=== PATIENT | female | born 1945 | race Native Hawaiian/Other Pacific Islander ===

== ENCOUNTER 2018-02-19 07:26 | Day surgery (SDC) | payer MEDICARE ==
[2018-02-19 08:49] VITALS: BMI 38.7
--- NOTE | 2018-02-26 07:00 | PROCN ---
Copied To: Yanna Sharma MD Attending MD: Yanna Sharma MD DATE OF PROCEDURE: 02/19/2018 TILT TABLE TEST INDICATION: Recurrent dizziness. DESCRIPTION OF PROCEDURE: The patient was put on the table and tilted at 30 degrees for five minutes and 60 degrees for 15 minutes. Blood pressure and heart rate response were monitored every three minutes. There was a 19 mm slow drop in blood pressure and a 7-beat slow drop in heart rate. The patient tolerated the procedure well. The patient remained asymptomatic throughout the test. IMPRESSION: Changes in blood pressure and heart rate is strongly suggestive of autonomic neuropathy. Yanna Sharma MD
== END 2018-02-19 09:45 | disposition home or self-care (01) ==
LOC: C.CATHLAB 07:26
PROVIDERS: ATTEND Internal Medicine
DX: H81.49 Vertigo of central origin, unspecified ear (principal)

== ENCOUNTER 2018-09-30 07:16 | Day surgery (SDC) | payer MEDICARE ==
[2018-09-30] MEDS ORDERED: Lidocaine 2% MPF (5 ml) Inj ONE (09:20)
[2018-09-30] MEDS ORDERED: Lidocaine Hydrochloride 20 ML INJ ONE (09:21)
--- NOTE | 2018-10-01 02:06 | PROCN ---
DATE: 09/30/2018 INDICATION: Recurrent dizziness. PROCEDURE: Explant of loop recorder. SURGERY MANAGER: Yanna Sharma MD DESCRIPTION OF PROCEDURE: After an informed consent, the patient was brought to the union laborer and draped in the usual sterile fashion. Subsequently, the patient received subcutaneous lidocaine in the fourth intercostal space, one inch to the left of parasternal area. A 2-cm incision was made and the loop recorder was removed without difficulty and with minimal blood loss. Ancef 2 g IV push was given. The patient tolerated the procedure well. No complications were noted during and after the procedure. Yanna Sharma MD
== END 2018-09-30 11:10 | disposition home or self-care (01) ==
LOC: C.SPRAD 07:16
PROVIDERS: ATTEND Internal Medicine
DX: Z45.09 Encounter for adjustment and management of other cardiac device (principal); R42 Dizziness and giddiness
CPT/HCPCS: 33286; J0690